=== PATIENT | female | born 1965 | race American Indian/Alaskan Native ===

== ENCOUNTER 2018-11-13 10:40 | Day surgery (SDC) | payer BC ==
[~2018-11-13 10:40] MED LIST: NACL 0.9% 1000 ML 1,000 ML IV SCH
--- NOTE | 2018-11-13 11:56 | Anesthesia Day of Surgery ---
Anesthesia Day of Surgery - Day of Surgery Patient Examined: Yes Patient H&P Reviewed: Yes Patient is NPO: Yes Beta Blockers: No
[2018-11-13] MEDS ORDERED: DIPRIVAN 10 MG/ML IV ONE ×2 (11:57)
--- NOTE | 2018-11-13 11:57 | Anesthesia Consultation ---
Anesthesia Consult and Med Hx Date of service: 11/13/18 - Airway Anesthetic Teeth Evaluation: Partials ROM Head & Neck: Adequate Mental/Hyoid Distance: Adequate Mallampati Class: Class III Intubation Access Assessment: Good - Pulmonary Exam CTA: Yes - Cardiac Exam Cardiac Exam: No Murmur - Pre-Operative Health Status ASA Pre-Surgery Classification: ASA3 Proposed Anesthetic Plan: MAC - Cardiovascular System Hx Hypertension: Yes - Endocrine Hx Hypothyroidism: Yes
--- NOTE | 2018-11-13 12:44 | Procedure Note ---
Date of procedure: 11/13/18 Pre-op diagnosis: Colon Polyp Screening Post-op diagnosis: other (Normal Colon Mucosa/ Minor,Internal Hemorrhoid) Procedure: Colonoscopy Anesthesia: MAC Surgeon: LELO CHAMBERLAIN Estimated blood loss: none Pathology: none Condition: stable Disposition: same day (Resume home medication. Follow up in 1 to 2 weeks ([phone]).)
--- NOTE | 2018-11-13 12:45 | History and Physical Report ---
HISTORY OF PRESENT ILLNESS: This is a 53-year-old -Filipino female, who has an underlying history of hypertension and hypothyroidism and prior history of ectopic , who because of her age is being assessed for colonoscopy as part of colon polyp screening. She is otherwise doing well. Normally takes hydrochlorothiazide for hypertension. ALLERGIES: She has a history of allergy to ZOFRAN. SOCIAL HISTORY: Denies history of smoking or alcohol use. No cardiac issues. No flu shots. PHYSICAL EXAMINATION: VITAL SIGNS: She is afebrile. Blood pressure 129/71, pulse 59, height is 5 feet 3 inches. Weight is 203 pounds. HEENT: Shows no JVD. LUNGS: Clear to auscultation. CARDIOVASCULAR: Normal. ABDOMEN: Soft. Bowel sounds present. NEUROLOGIC: The patient is otherwise alert and oriented. ASSESSMENT: Colon polyp screening, hypertension, history of ectopic . PLAN: To do a colonoscopy at [facility] on 11/13/2018. JOB# [id number] KJ/NTS
[2018-11-13] MEDS ORDERED: WATER FOR IRRIG STERILE IR ONE (12:52)
--- NOTE | 2018-11-13 13:19 | Operative Report ---
NAME OF PROCEDURE: Colonoscopy. DESCRIPTION OF PROCEDURE: This is a 53-year-old -[place] female with an underlying history of hypertension. Colonoscopy done because of her age. As part of colon polyp screening, initial rectal exam was unremarkable. Instrument was passed through the rectum onto the cecum, which was identified with ileocecal valve and the appendiceal orifice. Visualization was fair to good. The scope was withdrawn up to the hepatic flexure and reintroduced to the cecum. This proximal colon, which included the cecum, ascending colon, the transverse colon, descending colon, and sigmoid showed normal mucosa. There was no evidence of any polyps, colitis or diverticular disease. The rectum showed moderate internal hemorrhoids on the retroverted view. Colon polyp screening, no colon polyps noted. No diverticular disease noted. Minor internal hemorrhoid. Plan to resume previous medication and have the patient follow up in the office in 1-2 weeks' time. RNShara was in the room throughout the entirety of the procedure. JOB# [id number] RODRIGO/HAYDEN
[2018-11-13 13:20] VITALS: BP 111/80
== END 2018-11-13 10:41 | disposition home or self-care (01) ==
LOC: GIO 10:40
DX: Z12.11 Encounter for screening for malignant neoplasm of colon (principal); K64.8 Other hemorrhoids; I10 Essential (primary) hypertension; E03.9 Hypothyroidism, unspecified; Z79.899 Other long term (current) drug therapy; Z98.890 Other specified postprocedural states; Z88.8 Allergy status to other drugs, medicaments and biological substances
CPT/HCPCS: 45378; J2704; J7030